=== PATIENT | female | born 1995 | race Caucasian/White ===

== ENCOUNTER 2022-03-03 10:55 | Emergency (ER) | payer OTHER ==
[~2022-03-03] VITALS: Ht 165.1 cm; Wt 53.6 kg
== END 2022-03-03 14:00 | disposition home or self-care (01) ==
LOC: ED 10:55
DX: H83.09 Labyrinthitis, unspecified ear (principal); Z88.0 Allergy status to penicillin
CPT/HCPCS: 36415; 80053; 83735; 85025; 96361; 96374; 99284-25; A9270; J1200; J7030